=== PATIENT | female | born 1980 | race Caucasian/White ===

== ENCOUNTER 2021-03-03 10:52 | Outpatient (CLI) | payer MEDICAID ==
[2021-03-03 11:17] LABS: Basophils # (Auto) 0.1 K/mm3 (0.0-0.1); Basophils % (Auto) 0.6 % (0.0-1.8); Eosinophils # (Auto) 0.4 K/mm3 (0.0-0.4); Eosinophils % (Auto) 4.1 % (0.0-4.3); Hematocrit 36.5 % (30.3-42.9); Lymphocytes # (Auto) 2.6 K/mm3 (1.2-5.4); Lymphocytes % (Auto) 28.8 % (13.4-35.0); Mean Corpuscular HGB Conc 33 % (30-34); Mean Corpuscular Volume 80 fl (79-97); Monocytes # (Auto) 0.6 K/mm3 (0.0-0.8); Monocytes % (Auto) 6.9 % (0.0-7.3); Platelet Count 330 K/mm3 (140-440); Red Blood Count 4.55 M/mm3 (3.65-5.03); Red Cell Distribution Width 14.9 % (13.2-15.2)
[2021-03-03 11:42] LABS: % Iron Saturation 9.78 %; Alanine Aminotransferase 17 units/L (7-56); Albumin 3.9 g/dL (3.9-5); Blood Urea Nitrogen 9 mg/dL (7-17); Calcium 8.9 mg/dL (8.4-10.2); Chol/HDL Ratio 3.93 %; HDL Cholesterol 47 mg/dL (40-59); Hemolysis Index 0; Iron 36 ug/dL (37-170); LDL Cholesterol,Direct 139 mg/dL (50-130); Total Iron Binding Capacity 368 mcg/dL (250-450)
[2021-03-03 11:43] LABS: BUN/Creatinine Ratio 15
== END 2021-03-03 10:53 | disposition home or self-care (01) ==
LOC: LAB 10:52
PROVIDERS: ATTEND Surgery
DX: E66.01 Morbid (severe) obesity due to excess calories (principal); K30 Functional dyspepsia; E11.9 Type 2 diabetes mellitus without complications
CPT/HCPCS: 36415; 80053; 80061; 82306; 82607; 82728; 83036; 83550; 84443; 85025; 85730